=== PATIENT | female | born 1990 | race Caucasian/White ===

== ENCOUNTER 2018-09-06 03:37 | Emergency (ER) | payer OTHER ==
[2018-09-06] MEDS ORDERED: SODIUM CHLORIDE 0.9% 1,000 ML IV ONE (03:48)
[2018-09-06] MEDS ORDERED: IPRATROPIUM/ALBUTEROL 3 ML NEB INH STA (03:48)
[2018-09-06] MEDS ORDERED: LIDOCAINE VISCOUS 2% 100 ML BOTTLE MM STA (03:49)
[2018-09-06] MEDS ORDERED: IOPAMIDOL-300 100 ML VIAL ONE (03:59)
[2018-09-06 04:13] LABS: BASOPHILS # (AUTO) 0.1 10^3/uL (0.0-0.1); BASOPHILS % (AUTO) 0.5 %; EOSINOPHILS % (AUTO) 0.1 %; HGB - HEMOGLOBIN 13.9 g/dL (12.0-16.0); LYMPHOCYTES # (AUTO) 1.5 10^3/uL (1.5-3.5); LYMPHOCYTES % (AUTO) 14.3 %; MEAN CORPUSCULAR HEMOGLOBIN 29.5 pg (27.0-31.0); MEAN CORPUSCULAR VOLUME 86.7 fL (81.0-99.0); MONOCYTES # (AUTO) 0.4 10^3/uL (0.0-1.0); MONOCYTES % (AUTO) 3.8 %; NEUTROPHILS # (AUTO) 8.7 10^3/uL (1.5-6.6); NEUTROPHILS % (AUTO) 81.3 %; PLT - PLATELET COUNT 364 10^3/uL (130-450); RED BLOOD COUNT 4.73 10^6/uL (4.20-5.40); RED CELL DISTRIBUTION WIDTH 13.1 % (12.0-15.0); WHITE BLOOD COUNT 10.7 x10^3/uL (4.8-10.8)
[2018-09-06 04:25] LABS: ALBUMIN 4.2 g/dL (3.2-5.5); ALBUMIN/GLOBULIN RATIO 1.1 (1.0-2.2); BILIRUBIN,TOTAL 1.2 mg/dL (0.2-1.0); CALCIUM 9.6 mg/dL (8.5-10.3); CREATININE 0.7 mg/dL (0.4-1.0)
[2018-09-06 04:34] LABS: HCG,QUALITATIVE BLOOD NEGATIVE
[2018-09-06] MEDS ORDERED: LIDOCAINE VISCOUS 2% 15 ML UDC MM STA (04:35)
[2018-09-06] MEDS ORDERED: IOPAMIDOL-300 100 ML VIAL IVP ONE (05:00)
--- NOTE | 2018-09-06 05:24 | CT Report ---
Reason: sore throat, difficulty breathing and swallowing Procedure Date: 09/06/2018 Accession Number: [id number] / [id number] Procedure: CT - SOFT TISSUE NECK W CPT Code: FULL RESULT: EXAM: CT SOFT TISSUE NECK WITH CONTRAST. EXAM DATE: 09/06/2018 05:02 AM. HISTORY: Sore throat. Difficulty breathing and swallowing. COMPARISONS: None. TECHNIQUE: Routine soft tissue neck CT protocol. Reconstructions: Coronal and sagittal. IV contrast: ISOVUE 300 80mL. In accordance with CT protocol optimization, one or more of the following dose reduction techniques were utilized for this exam: automated exposure control, adjustment of mA and/or KV based on patient size, or use of iterative reconstructive technique. FINDINGS: There is moderate enlargement of the right palatine tonsil and mild enlargement of the left tonsil. No well defined tonsillar abscess is identified. However, an ill-defined patchy region of slight decreased attenuation in the right tonsil measuring approximately 15 x 12 mm (AP by TR) on image 60, series 4 is suspicious for a developing phlegmon or early abscess. There is no well defined rim of enhancement to indicate a drainable abscess at this time. The enlarged tonsils contribute to mild to moderate side to side narrowing of the oropharyngeal airway. The adjacent parapharyngeal space fat is unremarkable. There is no evidence of an abscess elsewhere in the neck. There is no retropharyngeal abscess or swelling. There is no evidence of a mass or lymphadenopathy in the neck. The major salivary glands and thyroid gland appear normal. Laryngeal structures are symmetric and appear normal. Subglottic airway is widely patent. Visualized portions of the brain and orbits appear normal. Paranasal sinuses and mastoid air cells are clear. The visible osseous structures are unremarkable. Visualized lung apices are clear. IMPRESSION: 1. There is moderate enlargement of the right tonsil and mild enlargement of the left tonsil. An approximately 1.5 x 1.2 cm ill-defined patchy region of low attenuation in the enlarged right tonsil is suspicious for a developing phlegmon or early abscess. There is no well defined rim of enhancement to indicate a drainable abscess at this time. The enlarged tonsils produce mild to moderate side to side narrowing of the oropharyngeal airway. There is no severe airway narrowing. RADIA
--- NOTE | 2018-09-06 05:30 | XRAY Report ---
Reason: SOA Procedure Date: 09/06/2018 Accession Number: [id number] / [id number] Procedure: XR - Chest 1 View X-Ray CPT Code: 65358 FULL RESULT: EXAM: CHEST RADIOGRAPHY EXAM DATE: 09/06/2018 05:06 AM. CLINICAL HISTORY: SOA. COMPARISON: None. TECHNIQUE: 1 view. FINDINGS: Lungs/Pleura: No focal opacities evident. No pleural effusion. No pneumothorax. Mediastinum: Within exam limitations, the cardiomediastinal contour is normal. Other: None. IMPRESSION: Normal single view chest. RADIA
[2018-09-06] MEDS ORDERED: methylPREDNISolone SUCCINATE 125 MG/2 ML VIAL IVP STA (05:46)
[2018-09-06] MEDS ORDERED: AMPICILLIN/SULBACTAM 3 GM in SODIUM CHLORIDE 0.9% MINIBAG 100 ML IV STA (05:46)
[2018-09-06 06:07] VITALS: BP 120/83
--- NOTE | 2018-09-06 06:28 | ED Physician Documentation ---
PD HPI HEENT - Stated complaint Stated Complaint: SOA - Chief complaint Chief Complaint: Heent - History obtained from History obtained from: Patient - History of Present Illness Timing - onset: How many days ago (1) Timing - duration: Days (1) Timing - details: Gradual onset Pain level max: 6 Pain level now: 4 Severity Comments: mild Location: Throat Improves: Nothing Worsens: Swalllowing Associated symptoms: Fever, Congestion - Additional information Additional information: Patient reports recent diagnosis of strep throat and now has worsening difficulty swallowing and breathing with right-sided neck pain. Review of Systems Ten Systems: 10 systems reviewed and negative Constitutional: reports: Reviewed and negative Eyes: reports: Reviewed and negative Ears: reports: Reviewed and negative Nose: reports: Reviewed and negative Throat: reports: Reviewed and negative Cardiac: reports: Reviewed and negative Respiratory: reports: Reviewed and negative GI: reports: Reviewed and negative : reports: Reviewed and negative Skin: reports: Reviewed and negative Musculoskeletal: reports: Reviewed and negative Neurologic: reports: Reviewed and negative Psychiatric: reports: Reviewed and negative Endocrine: reports: Reviewed and negative Immunocompromised: reports: Reviewed and negative PD PAST MEDICAL HISTORY - Past Medical History Past Medical History: Yes Respiratory: Asthma Other Past Medical History: Reviewed and not pertinent - Past Surgical History Past Surgical History: No Other past surgical history: Reviewed and not pertinent - Present Medications Home Medications: Ambulatory Orders Medication Instructions Recorded Confirmed Amox/Clav 875/125 [Augmentin 1 tab PO Q8HR #30 tablet 09/06/18 875/125] predniSONE [Prednisone] 60 mg PO DAILY #15 tablet 09/06/18 - Allergies Allergies/Adverse Reactions: Allergies Allergy/AdvReac Type Severity Reaction Status Date / Time azithromycin [From Zithromax] Allergy Unknown Verified 09/06/18 04:20 - Social History Does the pt smoke?: No Smoking Status: Never smoker Does the pt drink ETOH?: Yes Does the pt have substance abuse?: No - Family History Family history: reports: Other (Reviewed and not pertinent) - Immunizations Immunizations are current?: Yes PD ED PE NORMAL - Vitals Vital signs reviewed: Yes - General General: Alert and oriented X 3, No acute distress - HEENT HEENT: PERRL - Neck Neck: Supple, no meningeal sign - Cardiac Cardiac: RRR, No murmur - Respiratory Respiratory: Clear bilaterally - Abdomen Abdomen: Normal bowel sounds, Soft, Non tender, Non distended - Derm Derm: Warm and dry - Extremities Extremities: No deformity - Neuro Neuro: Alert and oriented X 3 - Psych Psych: Normal mood, Normal affect Results - Vitals Vitals: Vital Signs - 24 hr 09/06/18 09/06/18 09/06/18 03:42 04:04 06:06 Temperature 36.4 C L Heart Rate 82 105 H 79 Respiratory 17 18 18 Rate Blood Pressure 136/96 H 120/83 H O2 Saturation 98 100 Oxygen O2 Source Room air - Labs Labs: Laboratory Tests 09/06/18 09/06/18 09/06/18 04:02 04:02 04:02 WBC 10.7 RBC 4.73 Hgb 13.9 Hct 41.0 MCV 86.7 MCH 29.5 MCHC 34.0 RDW 13.1 Plt Count 364 MPV 8.0 Neut # (Auto) 8.7 H Lymph # (Auto) 1.5 Lassen # (Auto) 0.4 Eos # (Auto) 0.0 Baso # (Auto) 0.1 Absolute Nucleated RBC 0.01 Nucleated RBC % 0.1 Sodium 136 Potassium 3.8 Chloride 104 Carbon Dioxide 22 Anion Gap 10.0 BUN 10 Creatinine 0.7 Estimated GFR (MDRD) 101 Glucose 131 H Lactic Acid 1.3 Calcium 9.6 Total Bilirubin 1.2 H AST 28 ALT 27 Alkaline Phosphatase 74 Total Protein 8.0 Albumin 4.2 Globulin 3.8 Albumin/Globulin Ratio 1.1 Lipase 35 Serum HCG, Qual 09/06/18 04:02 WBC RBC Hgb Hct MCV MCH MCHC RDW Plt Count MPV Neut # (Auto) Lymph # (Auto) Lassen # (Auto) Eos # (Auto) Baso # (Auto) Absolute Nucleated RBC Nucleated RBC % Sodium Potassium Chloride Carbon Dioxide Anion Gap BUN Creatinine Estimated GFR (MDRD) Glucose Lactic Acid Calcium Total Bilirubin AST ALT Alkaline Phosphatase Total Protein Albumin Globulin Albumin/Globulin Ratio Lipase Serum HCG, Qual NEGATIVE - Rads (name of study) CT Soft Tissue Neck Radiology: Final report received, See rad report PD MEDICAL DECISION MAKING - ED course Complexity details: reviewed results, re-evaluated patient, considered differential, d/w patient, d/w family ED course: 28-year-old female with recent diagnosis of strep pharyngitis presents with throat pain, difficulty breathing, right-sided neck pain. CT scan consistent with peritonsillar phlegmon. Patient treated with IV Solu-Medrol and IV Unasyn. Discharged on Augmentin and prednisone. Referred to ENT for follow-up. Departure - Departure Disposition: 01 Home, Self Care Clinical Impression: Peritonsillar cellulitis Instructions: ED Tonsillitis, ED Peritonsillar Infec Abx No I andD Follow-Up: Your, ENT [Other] Prescriptions: Amox/Clav 875/125 [Augmentin 875/125] 1 tab PO Q8HR #30 tablet predniSONE [Prednisone] 60 mg PO DAILY #15 tablet Comments: Stop taking amoxicillin and prednisone taper. Instead take Augmentin and prednisone as prescribed. Follow-up with ENT in 24-48 hours for recheck. Otherwise follow-up with primary care provider in 24-48 hours for recheck. Return with worsening difficulty swallowing or breathing.Take Tylenol and ibuprofen as needed for pain according to bottle instructions.
== END 2018-09-06 06:41 | disposition home or self-care (01) ==
LOC: ED 03:37
DX: J36 Peritonsillar abscess (principal)
CPT/HCPCS: 36415; 70491; 71045; 80053; 83605; 83690; 84703; 85025; 87040; 94640; 94664; 96361; 96365; 96375; 99283; Q9967

== ENCOUNTER 2018-09-11 09:16 | Outpatient (CLI) | payer OTHER | END 2018-09-11 09:17 | disposition home or self-care (01) | LOC: SC 09:16 | PROVIDERS: ATTEND Internal Medicine Pulmonary Disease | DX: G47.10 Hypersomnia, unspecified (principal); G47.8 Other sleep disorders; R06.83 Snoring; E66.9 Obesity, unspecified; Z68.42 Body mass index [BMI] 45.0-49.9, adult | CPT/HCPCS: 99203; 99212 ==

== ENCOUNTER 2018-09-25 19:22 | Outpatient (CLI) | payer OTHER | END 2018-09-25 19:23 | disposition home or self-care (01) | LOC: SC 19:22 | PROVIDERS: ATTEND Internal Medicine Pulmonary Disease | DX: G47.33 Obstructive sleep apnea (adult) (pediatric) (principal) | CPT/HCPCS: 95810 ==

== ENCOUNTER 2018-10-10 09:13 | Outpatient (CLI) | payer OTHER | END 2018-10-10 09:14 | disposition home or self-care (01) | LOC: SC 09:13 | PROVIDERS: ATTEND Nurse Practitioner Family | DX: G47.33 Obstructive sleep apnea (adult) (pediatric) (principal) | CPT/HCPCS: 99212; 99214 ==

== ENCOUNTER 2018-12-18 09:10 | Outpatient (CLI) | payer OTHER | END 2018-12-18 09:11 | disposition home or self-care (01) | LOC: SC 09:10 | PROVIDERS: ATTEND Nurse Practitioner Family | DX: G47.33 Obstructive sleep apnea (adult) (pediatric) (principal) | CPT/HCPCS: 99212; 99214 ==

== ENCOUNTER 2019-01-29 10:41 | Outpatient (CLI) | payer OTHER ==
--- NOTE | 2019-01-29 11:49 | SLEEP CARE CONSULTATION ---
Information from patient questionnaire entered by Mary Lou Nicole. I have reviewed and concur with the information entered by Mary Lou Nicole. This document represents the service I personally performed and the decisions made by me, Phoebe Reese, RN, MSN, DECISION UNIT RN. History of Present Illness Previous diagnosis: Mild, Obstructive Sleep Apnea-Hypopnea Syndrome AHI: 10.0 Reason for CPAP/BiPAP follow up: first compliance, one month Equipment type: CPAP Equipment obtained from: [employer] Mask style: Full face (Dreamwear) Mask brand: Respironics Backup mask available: Yes (nasal mask) Last cushion change: not since set up - called [facility] and told not due for 3 months Prior sleep studies: Yes Year and Where: 2018 [facility] additional information: Changes since last seen is a tonsillectomy with 3 weeks recovery stated and decreased use of CPAP during this time. She also received information from [employer] and [employer] that her device is paid for. CPAP Compliance Data - Data Reviewed with Patient Average duration of nightly device use: 4H 20M Compliance rate %: 56.7 Current pressure setting (cmH2O): 4-15 Humidity settin Average residual AHI: 1.9 Average large leak: 15 minutes Subjective Missed days of use due to: reports: other (tonsillectomy and recovery) Patient concerns: reports: air blowing in eyes (waking a couple times a week this past week. ), condensation in mask/hose (rare), nasal congestion (better with use of Flonase. ), other (she is pulling off mask less often then shown on compliance report which could mean the mask leaks are so large it appears mask is off face on data collection. ). denies: aerophagia, mask discomfort, mask leak noise, dry mouth, nose, throat, epistaxis Observed to snore while using device: No On therapy, patient: reports: sleeping better, awakening more refreshed, being more awake and alert during the day, more rested overall. denies: drowsiness while driving Initial [place] Sleepiness Scale score: 7 Current [place] Sleepiness Scale score: 8 Allergies and Home Medications Known drug allergies: Yes (zythromycin) Home medication list reviewed: Yes Allergy and home medication list: Current Medications: Albuterol MDI prn, Q4hr Flonase 2 sprays each nostril before bed daily Prilosec prn Allergies: Zithromycin, Seasonal Physical Exam Blood Pressure: 108/80 Cuff size: long Heart Rate: 103 O2 Saturation: 93 Height: 5 ft 8 in Weight (kg): 153.042 kg Body Mass Index: 51.2 BMI Classification: Class 3 Impression and Plan 1. Obstructive Sleep Apnea-Hypopnea Syndrome, mild, with fair treatment compliance and good apnea control. On CPAP therapy, the patient has better sleep quality and is more rested overall. It appears compliance was not met this visit due to difficulty using CPAP following her tonsillectomy but now she is us ing well the past week so should meet compliance by next visit. Even though her device is paid now by insurance, I explained how maximum benefit is achieved when able to use CPAP with all sleep. Also it is helpful to have good compliance noted in record if has to transfer insurance /DME. Since her 90% pressure is 5.9cmH20, I will adjust her autoCPAP pressure to 4-6cmH20. She is advised to contact me if pressure change uncomfortable. She has also started losing weight and was praised. The new pressure range should accomodate further weight loss. For her mask leaks, I advised updating the cushion. Patient called [employer] and informed it was not due for 3 months which is not what the replacement schedule states. I think someone was confused and thought she was asking for the mask not the cushion. Thus I gave her a [employer] replacement schedule and advised to call again as mask leaks are getting worse. Until then she can tighten her mask headgear slightly. To reduce nasal congestion, shower at night to wash off body allergens and facilitate nasal drainage. Then she is to clean nose out with saline nasal spray sample given prior to Flonase to clear nose of dried secretions, adhering allergens and to improve medication adherence. Patient's apnea severity and rationale for treatment to reduce apnea, improve sleep quality and reduce cardiovascular and cerebrovascular events was reviewed. I also reviewed the benefit of consistent device use of CPAP for gastric reflux, migraines and asthma. She has had less headaches and her asthma symptoms much less. * Change CPAP pressure to 4-6 cmH2O * Implement methods to reduce nasal congestion. * update mask cushion and filters. * Notify me if snoring with mask or feeling that the pressure is too much or too little * Attempt to lose weight * Return for follow up in 1-2months or sooner if concerns arise I spent 100% of this 35 minute visit face to face with the patient with greater than 50% of this was spent time counseling the patient and coordination of care.
[2019-01-29 11:50] VITALS: BP 108/80
== END 2019-01-29 10:42 | disposition home or self-care (01) ==
LOC: SC 10:41
PROVIDERS: ATTEND Nurse Practitioner Family
DX: G47.33 Obstructive sleep apnea (adult) (pediatric) (principal)
CPT/HCPCS: 99212; 99214

== ENCOUNTER 2019-05-11 15:56 | Outpatient (CLI) | payer OTHER ==
[2019-05-11 16:44] LABS: ALBUMIN/GLOBULIN RATIO 1.1 (1.0-2.2); ALKALINE PHOSPHATASE 72 IU/L (42-121); ALT ALANINE AMINOTRANSFERASE 24 IU/L (10-60); AST ASPARTATE AMINOTRANSFERASE 23 IU/L (10-42); BILIRUBIN,TOTAL 0.7 mg/dL (0.2-1.0); BUN - BLOOD UREA NITROGEN 17 mg/dL (6-20); CALCIUM 9.7 mg/dL (8.5-10.3); CARBON DIOXIDE - CO2 27 mmol/L (21-32); CHLORIDE 103 mmol/L (101-111); CHOL/HDL RATIO 4.1 (<4.4); CHOLESTEROL 192 mg/dL; CREATININE 0.8 mg/dL (0.4-1.0); GFR - MDRD 87 (>89); GLUCOSE 108 mg/dL (70-100); HDL CHOLESTEROL 47 mg/dL; LDL CHOLESTEROL,CALCULATED 116 mg/dL; LDL/HDL RATIO 2.5 (<4.4); SODIUM 138 mmol/L (135-145); TOTAL PROTEIN 7.5 g/dL (6.7-8.2); VLDL CHOLESTEROL 29 mg/dL
[2019-05-11 17:03] LABS: HB2 TOTAL 14.1 g/dL; HEMOGLOBIN A1C 0.53 g/dL; HEMOGLOBIN A1C % 5.6 % (4.6-6.2)
[2019-05-12 10:46] LABS: HIV AG/AB 4TH GEN NON-REACTIVE (NON-REACTIVE)
[2019-05-12 12:36] LABS: HEPATITIS B SURFACE ANTIGEN NON-REACTIVE (NON-REACTIVE)
== END 2019-05-11 15:57 | disposition home or self-care (01) ==
LOC: LAB 15:56
PROVIDERS: ATTEND Obstetrics & Gynecology
DX: Z13.1 Encounter for screening for diabetes mellitus (principal); Z13.220 Encounter for screening for lipoid disorders; Z13.21 Encounter for screening for nutritional disorder; Z11.3 Encounter for screening for infections with a predominantly sexual mode of transmission
CPT/HCPCS: 36415; 80053; 80061; 81599; 82306; 83036; 83721; 84443; 86592; 87340; 87389

== ENCOUNTER 2019-09-11 08:00 | Outpatient (CLI) | payer OTHER | END 2019-09-11 23:59 | disposition home or self-care (01) | LOC: COV 08:00 | PROVIDERS: ATTEND Family Medicine | DX: R05 Cough (principal); R50.9 Fever, unspecified | CPT/HCPCS: 81599 ==